=== PATIENT | female | born 1930 | race African-American/Black ===

== ENCOUNTER 2017-07-03 10:12 | Inpatient (IN) ==
[2017-07-03 12:03] LABS: Basophils # 0.1 10*3/uL (0.0-0.2); Basophils % 0.1 % (0.0-0.8); Hematocrit 37.9 VOL% (35.7-47.0); Hemoglobin 9.9 GM/DL (12.0-16.0); Immature Granulocytes % 0.1 %; Immature Granulocytes Absolute 0.06 #; Lymphocytes # 57.2 10*3/uL (1.4-4.0); Lymphocytes % 94.9 % (21.3-54.2); Mean Corpuscular HGB Conc 26.1 GM/DL (32-36); Mean Corpuscular Hemoglobin 30 PG (27-34); Mean Corpuscular Volume 113.8 FL (87-102); Mean Platelet Volume 11.8 FL (9.6-12.0); Monocytes # 1.1 10*3/uL (0.11-0.8); Monocytes % 1.9 % (1.7-12.7); NRBC # 0.08 10*3/uL; Neutrophils # 1.8 10*3/uL (1.4-7.4); Platelet Count 133 T/CUMM (130-400); Red Blood Count 3.33 MC/CUMM (3.8-5.5); Red Cell Distribution Width 14.5 % (9.3-17.3)
[2017-07-03 12:06] LABS: White Blood Count 60.3 T/CUMM (4-12)
[2017-07-03 12:15] LABS: Amorphous Crystals,Urine Occasional /HPF (Few); Apearance,Urine CLOUDY (Clear); Bacteria,Urine Few /HPF (Few); Bilirubin,Urine Negative (Negative); Blood, Urine Negative (Negative); Glucose,Urine (UA) Negative (Negative); Ketones,Urine Negative (Negative); Nitrite,Urine Negative (Negative); Protein,Urine 30 MG/DL; RBC,Urine 3 /HPF (0-4); Urine Color Amber (Yellow); Urine Specific Gravity 1.016 (1.001-1.035); WBC,Urine 5 /HPF (0-6)
[2017-07-03 12:21] LABS: Lactic Acid 2.4 MMOL/L (0.4-2.0)
[2017-07-03 12:34] LABS: Alanine Aminotransferase 85 U/L (13-56); Alkaline Phosphatase 113 U/L (45-117); Aspartate Amino Transferase 79 U/L (0-37); Blood Urea Nitrogen 104 MG/DL (7-18); Calcium 9.2 MG/DL (8.5-10.1); Glucose 113 MG/DL (74-106); Magnesium 3.3 MG/DL (1.8-2.4); Osmolality,Calculated 370.1 MOS/KG (273-304); Potassium 3.2 MMOL/L (3.5-5.1); Total Protein 8.6 G/DL (6.4-8.3)
[2017-07-03 12:36] LABS: Sodium > 171 MMOL/L (136-145)
[2017-07-03 12:39] LABS: Lymphocytes 93 % (20-55); Platelet Estimate Decreased; Segmented Neutrophils 7 % (50-85); Smudge Cells Moderate; Total Cells Counted 100
[2017-07-03] MEDS ORDERED: SODIUM CHLORIDE 0.9% 1,000 ML IV STA (13:06)
[2017-07-03] MEDS ORDERED: POTASSIUM CHLORIDE RIDER 20 MEQ in PREMIX 1 EACH IV ONE (14:03)
[2017-07-03] MEDS ORDERED: ONDANSETRON 4 MG/2 ML VIAL IV PRN (14:03)
[2017-07-03] MEDS ORDERED: ACETAMINOPHEN 325 MG TABLET NG PRN (14:03)
[2017-07-03] MEDS ORDERED: BISACODYL 10 MG SUPP RECTAL PRN (14:10)
[2017-07-03] MEDS: MORPHINE 2 MG/1 ML SYRINGE IV PRN ×2 (15:35→20:32)
[2017-07-03] MEDS: PANTOPRAZOLE 40 MG VIAL IV SCH (15:35)
[2017-07-03] MEDS: DEXTROSE 5% 1,000 ML IV SCH (15:35)
[2017-07-03] MEDS: BRIMONIDINE 0.15% OPH SOLN 1 DROP/DROPS BOTTLE RIGHT EYE SCH (15:37)
[2017-07-03 16:43] LABS: Lactic Acid 2.2 MMOL/L (0.4-2.0)
[2017-07-03] MEDS: VITAMIN A & D OINT 56.7 GM TUBE TOP SCH (17:07)
[2017-07-04] MEDS: VITAMIN A & D OINT 56.7 GM TUBE TOP SCH ×4 (01:07→22:32)
[2017-07-04] MEDS: BRIMONIDINE 0.15% OPH SOLN 1 DROP/DROPS BOTTLE RIGHT EYE SCH ×3 (01:07→22:35)
[2017-07-04] MEDS: ENOXAPARIN 30 MG/0.3 ML SYRINGE SUBCUT SCH ×2 (01:07→22:31)
[2017-07-04] MEDS: DEXTROSE 5% 1,000 ML IV SCH ×4 (01:57→22:31)
[2017-07-04 07:24] LABS: Blood Urea Nitrogen 79 MG/DL (7-18); Calcium 8.2 MG/DL (8.5-10.1); Glucose 157 MG/DL (74-106); Magnesium 3.1 MG/DL (1.8-2.4); Potassium 3.5 MMOL/L (3.5-5.1)
[2017-07-04 07:34] LABS: Sodium > 171 MMOL/L (136-145)
[2017-07-04 07:35] LABS: Osmolality,Calculated 363.1 MOS/KG (273-304)
[2017-07-04] MEDS: PANTOPRAZOLE 40 MG VIAL IV SCH (09:19)
[2017-07-05] MEDS: DEXTROSE 5% 1,000 ML IV SCH ×2 (04:22→16:46)
[2017-07-05 09:09] LABS: Basophils # 0.1 10*3/uL (0.0-0.2); Basophils % 0.1 % (0.0-0.8); Calcium 7.8 MG/DL (8.5-10.1); Hematocrit 29.4 VOL% (35.7-47.0); Immature Granulocytes % 0.1 %; Immature Granulocytes Absolute 0.08 #; Lymphocytes # 51.3 10*3/uL (1.4-4.0); Lymphocytes % 94.8 % (21.3-54.2); Magnesium 2.6 MG/DL (1.8-2.4); Mean Corpuscular HGB Conc 27.6 GM/DL (32-36); Mean Corpuscular Hemoglobin 30 PG (27-34); Mean Corpuscular Volume 108.5 FL (87-102); Mean Platelet Volume 11.7 FL (9.6-12.0); Monocytes # 0.8 10*3/uL (0.11-0.8); Monocytes % 1.6 % (1.7-12.7); Neutrophils # 1.9 10*3/uL (1.4-7.4); Neutrophils % 3.4 % (38.7-73.9); Osmolality,Calculated 336.9 MOS/KG (273-304); Red Blood Count 2.71 MC/CUMM (3.8-5.5); Red Cell Distribution Width 14.5 % (9.3-17.3)
[2017-07-05 09:34] LABS: Hemoglobin 8.1 GM/DL (12.0-16.0); Platelet Count 76 T/CUMM (130-400); White Blood Count 54.2 T/CUMM (4-12)
[2017-07-05] MEDS: PANTOPRAZOLE 40 MG VIAL IV SCH (11:02)
[2017-07-05 11:30] LABS: Band Neutrophils 2 % (0-10); Lymphocytes 89 % (20-55); Nucleated Red Blood Cells 1 (0-5); Segmented Neutrophils 8 % (50-85); Total Cells Counted 100
[2017-07-05 11:31] LABS: Atypical Lymphocytes Few; Hypochromasia 1+; Smudge Cells Moderate
[2017-07-05 11:32] LABS: Platelet Estimate Decreased
[2017-07-05] MEDS: VITAMIN A & D OINT 56.7 GM TUBE TOP SCH ×3 (14:30→22:08)
[2017-07-05] MEDS: BRIMONIDINE 0.15% OPH SOLN 1 DROP/DROPS BOTTLE RIGHT EYE SCH ×2 (16:40→22:08)
[2017-07-05] MEDS: POTASSIUM CHLORIDE 20 MEQ/15 ML UDCUP PER TUBE PRN (18:17)
[2017-07-05] MEDS: SODIUM CHLORIDE 23.4% CONC INJ 38.5 MEQ in STERILE WATER INJ 1,000 ML IV SCH (22:06)
[2017-07-05] MEDS: ENOXAPARIN 30 MG/0.3 ML SYRINGE SUBCUT SCH (22:08)
[2017-07-06] MEDS: SODIUM CHLORIDE 23.4% CONC INJ 38.5 MEQ in STERILE WATER INJ 1,000 ML IV SCH ×3 (06:18→22:28)
[2017-07-06 06:20] LABS: Calcium 7.3 MG/DL (8.5-10.1); Magnesium 2.6 MG/DL (1.8-2.4); Osmolality,Calculated 308.7 MOS/KG (273-304); Prealbumin 5.4 MG/DL (20-40)
[2017-07-06] MEDS: POTASSIUM CHLORIDE 20 MEQ/15 ML UDCUP PER TUBE PRN ×4 (09:04→18:40)
[2017-07-06] MEDS: PANTOPRAZOLE 40 MG VIAL IV SCH (09:04)
[2017-07-06] MEDS: VITAMIN A & D OINT 56.7 GM TUBE TOP SCH ×3 (09:10→22:28)
[2017-07-06] MEDS: BRIMONIDINE 0.15% OPH SOLN 1 DROP/DROPS BOTTLE RIGHT EYE SCH ×2 (09:11→21:40)
[2017-07-06] MEDS ORDERED: SKIN HEALING OINT (AQUAPHOR) 50 GM TUBE TOP PRN (12:42)
[2017-07-06] MEDS ORDERED: ZINC OXIDE PASTE 113 GM TUBE TOP PRN (12:43)
[2017-07-06] MEDS: ENOXAPARIN 30 MG/0.3 ML SYRINGE SUBCUT SCH (20:39)
[2017-07-07 05:52] LABS: Calcium 7.6 MG/DL (8.5-10.1); Magnesium 2.3 MG/DL (1.8-2.4); Osmolality,Calculated 303.3 MOS/KG (273-304); Potassium 3.5 MMOL/L (3.5-5.1)
[2017-07-07] MEDS: POTASSIUM CHLORIDE 20 MEQ/15 ML UDCUP PER TUBE PRN (08:57)
[2017-07-07] MEDS: PANTOPRAZOLE 40 MG VIAL IV SCH (08:57)
[2017-07-07] MEDS: BRIMONIDINE 0.15% OPH SOLN 1 DROP/DROPS BOTTLE RIGHT EYE SCH ×2 (09:01→20:36)
[2017-07-07] MEDS: SODIUM CHLORIDE 23.4% CONC INJ 38.5 MEQ in STERILE WATER INJ 1,000 ML IV SCH ×2 (09:05→18:06)
[2017-07-07] MEDS: VITAMIN A & D OINT 56.7 GM TUBE TOP SCH ×2 (09:05→16:40)
[2017-07-07] MEDS: ENOXAPARIN 30 MG/0.3 ML SYRINGE SUBCUT SCH (20:34)
[2017-07-08] MEDS: VITAMIN A & D OINT 56.7 GM TUBE TOP SCH ×2 (00:23→10:20)
[2017-07-08] MEDS: MORPHINE 2 MG/1 ML SYRINGE IV PRN (03:18)
[2017-07-08] MEDS: SODIUM CHLORIDE 23.4% CONC INJ 38.5 MEQ in STERILE WATER INJ 1,000 ML IV SCH ×2 (03:22→10:47)
[2017-07-08 04:01] LABS: Albumin 1.5 G/DL (3.4-5.0); Bilirubin,Total 1.3 MG/DL (0.2-1.0); Calcium 7.5 MG/DL (8.5-10.1)
[2017-07-08 04:02] LABS: Potassium 3.6 MMOL/L (3.5-5.1)
[2017-07-08] MEDS: PANTOPRAZOLE 40 MG VIAL IV SCH (09:41)
[2017-07-08] MEDS: BRIMONIDINE 0.15% OPH SOLN 1 DROP/DROPS BOTTLE RIGHT EYE SCH (09:45)
[2017-07-08] MEDS ORDERED: SODIUM CHLORIDE IV SCH (11:30)
[2017-07-08] MEDS ORDERED: STERILE WATER IV SCH (11:30)
[2017-07-08 13:47] VITALS: BP 101/60
== END 2017-07-08 14:30 | DRG 683 ==
LOC: N.ED 10:12 → N.EDINP 14:01 → N.4E 15:27
PROVIDERS: ADMIT Internal Medicine Infectious Disease; ATTEND Internal Medicine Infectious Disease